=== PATIENT | male | born 1955 | race Two or more races ===

== ENCOUNTER 2019-05-19 14:40 | Outpatient (CLI) | payer MEDICARE ==
[2019-05-19] MEDS ORDERED: ATOR10TA9 PO (15:09)
[2019-05-19] MEDS ORDERED: ASPI-496 PO (15:09)
[2019-05-19] MEDS ORDERED: DICY10CA3 PO (15:09)
[2019-05-19 15:43] LABS: BASOPHILS # (AUTO) 0.08 x10^3/uL (0-0.1); BASOPHILS % (AUTO) 1 % (0-1); EOSINOPHILS # (AUTO) 0.23 x10^3/uL (0-0.4); EOSINOPHILS % (AUTO) 3 % (1-7); LYMPHOCYTES # (AUTO) 2.41 x10^3/uL (1-3.4); LYMPHOCYTES % (AUTO) 32 % (22-44); MD NO; MEAN CORPUSCULAR HEMOGLOBIN 30.8 pg (27.5-34.5); MEAN CORPUSCULAR HGB CONC 33.4 g/dL (33.2-36.2); MEAN CORPUSCULAR VOLUME 92.4 fL (81-97); MEAN PLATELET VOLUME 8.3 fL (7.4-10.4); MONOCYTES # (AUTO) 0.72 x10^3/uL (0.2-0.8); MONOCYTES % (AUTO) 10 % (2-9); NEUTROPHILS # (AUTO) 4.17 x10^3/uL (1.8-6.8); NEUTROPHILS % (AUTO) 55 % (42-75); PLATELET COUNT 263 x10^3/uL (130-400); RED BLOOD COUNT 5.06 x10^6/uL (4.38-5.82); RED CELL DISTRIBUTION WIDTH 14.2 % (9.4-14.8)
[2019-05-19 15:52] LABS: ALBUMIN 4.3 g/dL (3.4-5.0); ANION GAP 6 mmol/L (5-15); CALCIUM 9.2 mg/dL (8.5-10.1); CHLORIDE 108 mmol/L (98-107)
[2019-05-19 15:55] LABS: ALANINE AMINOTRANSFERASE 23 U/L (12-78); ALKALINE PHOSPHATASE 101 U/L (45-117); BILIRUBIN,TOTAL 0.6 mg/dL (0.2-1.0); CREATININE 1.01 mg/dL (0.7-1.3); TOTAL PROTEIN 8.1 g/dL (6.4-8.2)
== END 2019-05-19 23:59 | disposition home or self-care (01) ==
LOC: STAR 14:40
PROVIDERS: ATTEND Urology
DX: Z01.818 Encounter for other preprocedural examination (principal); C61 Malignant neoplasm of prostate
CPT/HCPCS: 36415; 80053; 85025; 93005

== ENCOUNTER 2019-05-27 05:36 | Inpatient (IN) | payer MEDICAID, MEDICARE ==
[~2019-05-27] VITALS: Ht 175.3 cm; Wt 83.7 kg
[~2019-05-27 05:36] MED LIST: ASPI-496 PO; ATOR10TA9 PO; DICY10CA3 PO
[2019-05-27] MEDS ORDERED: LACTATED RINGERS 1,000 ML IV SCH (06:07)
[2019-05-27 06:35] VITALS: BP 142/77
[2019-05-27] MEDS ORDERED: MIDAZOLAM 1 MG/ML, 2ML ONE (07:09)
[2019-05-27] MEDS ORDERED: FENTANYL PF 250 MCG/5ML ONE (07:10)
[2019-05-27] MEDS ORDERED: ONDANSETRON 2MG/ML, 2ML ONE (07:10)
[2019-05-27] MEDS ORDERED: PROPOFOL 10 MG/ML, 20ML ONE (07:10)
[2019-05-27] MEDS ORDERED: LIDOCAINE-MPF 2% ,5ML ONE (07:10)
[2019-05-27] MEDS ORDERED: CEFAZOLIN 1,000 MG ONE ×2 (07:10)
[2019-05-27] MEDS ORDERED: ROCURONIUM 10MG/ML,5ML ONE ×2 (07:10→07:13)
[2019-05-27] MEDS ORDERED: DEXAMETHASONE 4 MG/ML, 1ML ONE ×2 (07:10)
[2019-05-27] MEDS ORDERED: BUPIVACAINE/PF 0.25% ONE (07:13)
[2019-05-27] MEDS ORDERED: EPINEPHRINE 1 MG/ML, 1ML ONE (07:14)
[2019-05-27] MEDS ORDERED: OPIUM/BELLADONNA SUPP.RECT 16.2-60 MG ONE (07:14)
[2019-05-27] MEDS ORDERED: PHENYLEPHRINE 10 MG/ML ONE (07:29)
[2019-05-27] MEDS ORDERED: NEOSTIGMINE 1 MG/ML, 10ML ONE (07:29)
[2019-05-27] MEDS ORDERED: GLYCOPYRROLATE 0.2MG/1ML, 5ML ONE (07:29)
[2019-05-27] MEDS ORDERED: ACETAMINOPHEN 500 MG TABLET PO ONE (07:30)
[2019-05-27] MEDS ORDERED: GABAPENTIN 300 MG CAPSULE PO ONE (07:30)
[2019-05-27] MEDS ORDERED: BUPIVACAINE/PF 0.25% INFIL ONE (08:24)
[2019-05-27] MEDS ORDERED: LABETALOL 5MG/ML, 20ML IV PRN (11:30)
[2019-05-27] MEDS ORDERED: OXYcodone 5 MG/5 ML ORAL.SOL UDC PO PRN (11:30)
[2019-05-27] MEDS ORDERED: MEPERIDINE/PF 25MG/0.5ML IVPush PRN (11:30)
[2019-05-27] MEDS ORDERED: ONDANSETRON 2MG/ML, 2ML IV PRN (11:30)
[2019-05-27] MEDS ORDERED: hydrALAzine 20 MG/ML, 1ML IV PRN (11:30)
[2019-05-27] MEDS ORDERED: ALBUTEROL/IPRATROPIUM 2.5MG/0.5MG, 3 ML NPPB PRN (11:30)
[2019-05-27] MEDS ORDERED: LORazepam 2 MG/ML, 1ML IVPush PRN (11:30)
[2019-05-27] MEDS ORDERED: METOCLOPRAMIDE 5 MG/ML, 2ML IV PRN (11:30)
[2019-05-27] MEDS ORDERED: SCOPOLAMINE PATCH, 1.5MG PATCH.TD72 TD PRN (11:30)
[2019-05-27] MEDS ORDERED: HYDROmorphone 2 MG/ML, 1ML IVPush PRN (11:30)
[2019-05-27] MEDS ORDERED: FENTANYL PF 100 MCG/2ML ONE (11:53)
[2019-05-27] MEDS: FENTANYL PF 100 MCG/2ML IV PRN ×2 (12:02→12:07)
[2019-05-27 13:05] VITALS: BP 120/65
[2019-05-27] MEDS ORDERED: OPIUM/BELLADONNA SUPP.RECT 16.2-60 MG PR PRN (13:30)
[2019-05-27] MEDS: D5%-0.45NACL+KCL 20MEQ 1,000 ML IV SCH ×2 (14:13→23:02)
[2019-05-27] MEDS: ACETAMINOPHEN 500 MG TABLET PO SCH ×2 (14:13→20:11)
[2019-05-27] MEDS: MORPHINE SULFATE 4 MG/ML, 1ML IVPush PRN ×2 (14:26→17:37)
[2019-05-27 19:56] VITALS: BP 123/71
[2019-05-27] MEDS: OXYcodone IR 5MG TABLET PO PRN ×2 (20:24→21:24)
[2019-05-27 23:38] VITALS: BP 107/63
[2019-05-28] MEDS: ACETAMINOPHEN 500 MG TABLET PO SCH ×4 (02:11→21:36)
[2019-05-28] MEDS: OXYcodone IR 5MG TABLET PO PRN ×5 (02:11→21:37)
[2019-05-28 03:45] VITALS: BP 100/60
[2019-05-28 05:20] LABS: CHLORIDE 109 mmol/L (98-107)
[2019-05-28 05:26] LABS: ANION GAP 6 mmol/L (5-15); CALCIUM 8.2 mg/dL (8.5-10.1); CREATININE 0.94 mg/dL (0.7-1.3)
[2019-05-28 07:31] VITALS: BP 107/64
[2019-05-28] MEDS: D5%-0.45NACL+KCL 20MEQ 1,000 ML IV SCH ×2 (07:35→15:47)
[2019-05-28 13:27] VITALS: BP 103/59
[2019-05-28 19:48] VITALS: BP 125/71
[2019-05-28] MEDS ORDERED: ONDANSETRON ODT 4 MG ONE (20:46)
[2019-05-28] MEDS ORDERED: ONDANSETRON ODT 4 MG PO PRN (21:00)
[2019-05-29 02:00] VITALS: BP 116/57
[2019-05-29] MEDS: D5%-0.45NACL+KCL 20MEQ 1,000 ML IV SCH ×2 (04:11→11:00)
[2019-05-29] MEDS: ACETAMINOPHEN 500 MG TABLET PO SCH ×2 (04:11→10:12)
[2019-05-29 06:17] LABS: BASOPHILS # (AUTO) 0.04 x10^3/uL (0-0.1); BASOPHILS % (AUTO) 1 % (0-1); EOSINOPHILS # (AUTO) 0.14 x10^3/uL (0-0.4); EOSINOPHILS % (AUTO) 2 % (1-7); LYMPHOCYTES # (AUTO) 1.57 x10^3/uL (1-3.4); LYMPHOCYTES % (AUTO) 22 % (22-44); MD NO; MEAN CORPUSCULAR HEMOGLOBIN 30.7 pg (27.5-34.5); MEAN CORPUSCULAR HGB CONC 33.2 g/dL (33.2-36.2); MEAN CORPUSCULAR VOLUME 92.3 fL (81-97); MEAN PLATELET VOLUME 8.3 fL (7.4-10.4); MONOCYTES % (AUTO) 11 % (2-9); NEUTROPHILS # (AUTO) 4.71 x10^3/uL (1.8-6.8); NEUTROPHILS % (AUTO) 65 % (42-75); PLATELET COUNT 207 x10^3/uL (130-400); RED BLOOD COUNT 4.22 x10^6/uL (4.38-5.82)
[2019-05-29 06:27] LABS: ALBUMIN 3.5 g/dL (3.4-5.0); ANION GAP 5 mmol/L (5-15); CALCIUM 8.3 mg/dL (8.5-10.1); CHLORIDE 110 mmol/L (98-107)
[2019-05-29 06:32] LABS: ALANINE AMINOTRANSFERASE 21 U/L (12-78); ALKALINE PHOSPHATASE 58 U/L (45-117); BILIRUBIN,TOTAL 0.9 mg/dL (0.2-1.0); TOTAL PROTEIN 6.7 g/dL (6.4-8.2)
[2019-05-29 08:25] VITALS: BP 127/63
[2019-05-29] MEDS: OXYcodone IR 5MG TABLET PO PRN (11:30)
== END 2019-05-29 14:07 | disposition home or self-care (01) | DRG 708 ==
LOC: OUT 05:36 → 4NOR 13:05 → OUT 13:08 → 4NOR 13:08
PROVIDERS: ADMIT Urology; ATTEND Urology
PROC: 8E0W4CZ Robotic Assisted Procedure of Trunk Region, Percutaneous Endoscopic Approach (ICD-10-PCS; 2019-05-27)
PROC: 0VB34ZZ Excision of Bilateral Seminal Vesicles, Percutaneous Endoscopic Approach (ICD-10-PCS; 2019-05-27)
PROC: 0VT04ZZ Resection of Prostate, Percutaneous Endoscopic Approach (ICD-10-PCS; principal; 2019-05-27 07:30)
DX: C61 Malignant neoplasm of prostate (principal); K66.0 Peritoneal adhesions (postprocedural) (postinfection); I10 Essential (primary) hypertension; I48.91 Unspecified atrial fibrillation; I25.2 Old myocardial infarction; I25.10 Atherosclerotic heart disease of native coronary artery without angina pectoris; Z88.2 Allergy status to sulfonamides
CPT/HCPCS: 36415; 80048; 80053; 82570; 85014; 85018; 85025; 86850; 86900; 88309; C1729; G0378; J0171; J0690; J1100; J2250; J2405; J2704; J2710; J3010; J3490; Q0162; C1760; J2270; J2370; J3480; J7120

== ENCOUNTER 2019-06-03 08:29 | Outpatient (CLI) | payer MEDICAID, MEDICARE | END 2019-06-03 23:59 | disposition home or self-care (01) | LOC: RAD 08:29 | PROVIDERS: ATTEND Urology | DX: C61 Malignant neoplasm of prostate (principal) | CPT/HCPCS: 51600; 74430; Q9958 ==